=== PATIENT | male | born 1970 | race Caucasian/White ===

== ENCOUNTER 2022-04-07 00:36 | Emergency (ER) | payer MEDICAID ==
[~2022-04-07] VITALS: Ht 175.3 cm; Wt 54.5 kg
[~2022-04-07 00:36] MED LIST: IBUP-1573 PO; ONDA8TAB6 PO; PANT-47 PO
[2022-04-07 01:13] VITALS: BP 144/91
== END 2022-04-07 05:30 | disposition left against medical advice (07) ==
LOC: ER 00:37
DX: M79.671 Pain in right foot (principal); M79.672 Pain in left foot; Z53.21 Procedure and treatment not carried out due to patient leaving prior to being seen by health care provider